=== PATIENT | male | born 1960 | race American Indian/Alaskan Native ===

== ENCOUNTER 2020-07-23 01:59 | Emergency (ER) | payer SELFPAY ==
[2020-07-23] MEDS ORDERED: KETOROLAC 60 MG/2 ML INJ IM ONE (10:20)
[2020-07-23 11:02] LABS: Hematocrit 45.5 % (35.5-45.6); Hemoglobin 15.3 gm/dl (11.8-15.2); Mean Corpuscular HGB Conc 34 % (32-34); Mean Corpuscular Volume 89 fl (84-94); Platelet Count 176 K/mm3 (140-440); Red Blood Count 5.09 M/mm3 (3.65-5.03); Red Cell Distribution Width 13.7 % (13.2-15.2)
[2020-07-23 11:19] LABS: Alanine Aminotransferase 11 units/L (7-56); Albumin 4.6 g/dL (3.9-5); BUN/Creatinine Ratio 13; Blood Urea Nitrogen 12 mg/dL (9-20); Hemolysis Index 8; Uric Acid 5.6 mg/dL (3.5-7.6)
--- NOTE | 2020-07-23 11:29 | XRay Report ---
RIGHT ELBOW 3 VIEW(S) INDICATION / CLINICAL INFORMATION: right elbow pain and swelling COMPARISON: None available. FINDINGS: BONES / JOINT(S): No acute fracture or subluxation. Mild arthrosis. SOFT TISSUES: Soft tissue swelling and edema is noted of the posterior elbow. ADDITIONAL FINDINGS: None. Signer Name: Wild Lynn MD Signed: 07/23/2020 11:24 AM Workstation Name: [id number]
--- NOTE | 2020-07-23 11:54 | Emergency Department Report ---
<SHAI JONES - Last Filed: 07/23/20 20:35> ED Extremity Problem HPI - General Chief complaint: Extremity Injury, Upper Stated complaint: CAN'T MOVE RT ARM Time Seen by Provider: 07/23/20 10:16 Source: patient Mode of arrival: Ambulatory Limitations: No Limitations - History of Present Illness Initial comments: Patient is a 59-year-old male presents emergency room with complaints of right elbow pain and swelling that began yesterday morning. He denies any fall or injury. He denies any abrasions or being bit by anything. He denies ever having this in the past. He denies any numbness or weakness. He states that he has pain with movement. He denies any fever, chills, vomiting, diarrhea. No past medical history. No allergies to medications. He endorses alcohol use, states he is a non-smoker, denies drug use. He denies any history of gout but states that his mother has a history of gout. Severity scale (0 -10): 7 - Related Data Allergies Allergy/AdvReac Type Severity Reaction Status Date / Time No Known Allergies Allergy Unverified 07/23/20 04:32 ED Review of Systems Comment: All other systems reviewed and negative ED Past Medical Hx - Past Medical History Previous Medical History?: No - Surgical History Past Surgical History?: No - Social History Smoking Status: Never Smoker Substance Use Type: None ED Physical Exam - General Limitations: No Limitations General appearance: alert, in no apparent distress - Head Head exam: Present: atraumatic, normocephalic - Eye Eye exam: Present: normal appearance - ENT ENT exam: Present: mucous membranes moist - Respiratory Respiratory exam: Absent: respiratory distress, accessory muscle use - Extremities Exam Extremities exam: Present: other (generalized ttp of the right elbow, there is generalized edema, very mild increased warmth, no erythema, no skin changes, decreased ROM of the elbow secondary to pain and swelling, neurovascularly intact, 2+ distal pulse, compartments are soft) - Neurological Exam Neurological exam: Present: alert, oriented X3 - Psychiatric Psychiatric exam: Present: normal affect, normal mood - Skin Skin exam: Present: warm, dry, intact ED Course - Consultations Consultation #1: 07/23/20 17:38 Spoke with the [place] transfer line, will call back with orthopedic doctor 07/23/20 17:[address] Clancy, [facility], he states they do not have any beds available at [place] therefore will not be able to accept patient 07/23/20 17:58 secretary administrative assistant paged the [facility] transfer line they are on diversion, will try [facility] [place] 07/23/20 18:05 spoke with [facility] [place], will call back 07/23/20 18:[address] Rosario, orthopedic at [facility], will accept and resume care of patient, will accept transfer, advised to admit to hospitalist service at [facility] and will consult on patient 07/23/20 20:[address] Wright, hospitalist at [facility], he states that he would like confirmation from Dr. Rosario that he will consult on patient prior to accepting transfer, the transfer line is going to consult DR. Rosario to speak with Dr. Wright, he then will accept and resume care of patient, pt will be transferred to [facility] via EMS ED Medical Decision Making - Lab Data Result diagrams: 07/23/20 10:39 07/23/20 10:39 Lab Results 07/23/20 07/23/20 07/23/20 Range/Units 10:39 10:39 13:54 WBC 8.4 (4.5-11.0) K/mm3 RBC 5.09 H (3.65-5.03) M/mm3 Hgb 15.3 H (11.8-15.2) gm/dl Hct 45.5 (35.5-45.6) % MCV 89 (84-94) fl MCH 30 (28-32) pg MCHC 34 (32-34) % RDW 13.7 (13.2-15.2) % Plt Count 176 (140-440) K/mm3 Lymph % (Auto) Quality Control Lab Technician Day % (Auto) Quality Control Lab Technician Eos % (Auto) Quality Control Lab Technician Baso % (Auto) Quality Control Lab Technician Lymph # (Auto) Quality Control Lab Technician Day # (Auto) Quality Control Lab Technician Eos # (Auto) Quality Control Lab Technician Baso # (Auto) Quality Control Lab Technician Add Manual Diff Complete Total Counted 100 Seg Neutrophils % Quality Control Lab Technician Seg Neuts % (Manual) 69.0 (40.0-70.0) % Band Neutrophils % 0 % Lymphocytes % (Manual) 18.0 (13.4-35.0) % Reactive Lymphs % (Man) 0 % Monocytes % (Manual) 13.0 H (0.0-7.3) % Eosinophils % (Manual) 0 (0.0-4.3) % Basophils % (Manual) 0 (0.0-1.8) % Metamyelocytes % 0 % Myelocytes % 0 % Promyelocytes % 0 % Blast Cells % 0 % Nucleated RBC % Not Reportable Seg Neutrophils # Quality Control Lab Technician Seg Neutrophils # Man 5.8 (1.8-7.7) K/mm3 Band Neutrophils # 0.0 K/mm3 Lymphocytes # (Manual) 1.5 (1.2-5.4) K/mm3 Abs React Lymphs (Man) 0.0 K/mm3 Monocytes # (Manual) 1.1 H (0.0-0.8) K/mm3 Eosinophils # (Manual) 0.0 (0.0-0.4) K/mm3 Basophils # (Manual) 0.0 (0.0-0.1) K/mm3 Metamyelocytes # 0.0 K/mm3 Myelocytes # 0.0 K/mm3 Promyelocytes # 0.0 K/mm3 Blast Cells # 0.0 K/mm3 WBC Morphology Not Reportable Hypersegmented Neuts Not Reportable Hyposegmented Neuts Not Reportable Hypogranular Neuts Not Reportable Smudge Cells Not Reportable Toxic Granulation Not Reportable Toxic Vacuolation Not Reportable Dohle Bodies Not Reportable Pelger-Huet Anomaly Not Reportable Mark Rods Not Reportable Platelet Estimate Consistent w auto Clumped Platelets Not Reportable Plt Clumps, EDTA Not Reportable Large Platelets Not Reportable Giant Platelets Not Reportable Platelet Satelliting Not Reportable Plt Morphology Comment Not Reportable RBC Morphology Normal Dimorphic RBCs Not Reportable Polychromasia Not Reportable Hypochromasia Not Reportable Poikilocytosis Not Reportable Anisocytosis Not Reportable Microcytosis Not Reportable Macrocytosis Not Reportable Spherocytes Not Reportable Pappenheimer Bodies Not Reportable Sickle Cells Not Reportable Target Cells Not Reportable Tear Drop Cells Not Reportable Ovalocytes Not Reportable Helmet Cells Not Reportable [place] Bodies Not Reportable [place] Rings Not Reportable [place] Cells Not Reportable Bite Cells Not Reportable Crenated Cell Not Reportable Elliptocytes Not Reportable Acanthocytes (Spur) Not Reportable Rouleaux Not Reportable Hemoglobin C Crystals Not Reportable Schistocytes Not Reportable Malaria parasites Not Reportable Helio Bodies Not Reportable Hem Pathologist Commnt No Sodium 133 L (137-145) mmol/L Potassium 4.1 (3.6-5.0) mmol/L Chloride 92.6 L (98-107) mmol/L Carbon Dioxide 28 (22-30) mmol/L Anion Gap 17 mmol/L BUN 12 (9-20) mg/dL Creatinine 0.9 (0.8-1.3) mg/dL Estimated GFR > 60 ml/min BUN/Creatinine Ratio 13 % Glucose 124 H (75-100) mg/dL Uric Acid 5.6 (3.5-7.6) mg/dL Calcium 10.0 (8.4-10.2) mg/dL Total Bilirubin 3.10 H (0.1-1.2) mg/dL AST 14 (5-40) units/L ALT 11 (7-56) units/L Alkaline Phosphatase 42 (35-129) units/L C-Reactive Protein 7.50 H (0.00-1.30) mg/dL Total Protein 9.6 H (6.3-8.2) g/dL Albumin 4.6 (3.9-5) g/dL Albumin/Globulin Ratio 0.9 % Fluid Type Synovial Fluid Color Yellow Fluid Appearance Turbid Fluid WBC 01603 /mm3 Fluid RBC 1300 /mm3 Fluid Seg Neutrophils 81.0 % Fluid Lymphocytes 7.0 % Fluid Reactive Lymphs 0 % Fluid Monocytes 12.0 % Fluid Eosinophils 0 % Fluid Basophils 0 % Synovial Crystals Negative (NONE SEEN) Vital Signs 07/23/20 07/23/20 07/23/20 11:06 16:20 18:11 Temperature 97.8 F Pulse Rate 78 84 Respiratory 18 18 18 Rate Blood Pressure 180/109 160/80 [Right] O2 Sat by Pulse 99 99 Oximetry 07/23/20 18:12 Temperature Pulse Rate Respiratory 18 Rate Blood Pressure 175/95 [Right] O2 Sat by Pulse 100 Oximetry - Radiology Data Radiology results: report reviewed Ordering Physician: ANI YOST Date of Service: 07/23/20 Procedure(s): XR elbow 2V RT Accession Number(s): [id number] cc: ANI YOST Fluoro Time In Minutes: RIGHT ELBOW 3 VIEW(S) INDICATION / CLINICAL INFORMATION: right elbow pain and swelling COMPARISON: None available. FINDINGS: BONES / JOINT(S): No acute fracture or subluxation. Mild arthrosis. SOFT TISSUES: Soft tissue swelling and edema is noted of the posterior elbow. ADDITIONAL FINDINGS: None. Signer Name: Wild Capone MD Signed: 07/23/2020 11:24 AM Workstation Name: [id number] Transcribed By: Dictated By: WILD CAPONE Electronically Authenticated By: WILD CAPONE Signed Date/Time: 07/23/201123 DD/ 22 TD/TT: - Medical Decision Making Patient is a 59-year-old male presents emergency room with complaints of right elbow pain and swelling that began yesterday morning. He denies any fall or injury. He denies any abrasions or being bit by anything. He denies ever having this in the past. He denies any numbness or weakness. He states that he has pain with movement. He denies any fever, chills, vomiting, diarrhea. No past medical history. No allergies to medications. He endorses alcohol use, states he is a non-smoker, denies drug use. He denies any history of gout but states that his mother has a history of gout. initial vitals with elevated BP which improved upon repeat. on exam: generalized ttp of the right elbow, there is generalized edema, very mild increased warmth, no erythema, no skin changes, decreased ROM of the elbow secondary to pain and swelling, neurovascularly intact, 2+ distal pulse, compartments are soft. labs with elevated CRP. XR right elbow: BONES / JOINT(S): No acute fracture or subluxation. Mild arthrosis. SOFT TISSUES: Soft tissue swelling and edema is noted of the posterior elbow. AD DITIONAL FINDINGS: None. Examination concerning for septic joint. Discussed case with Dr. Estrada, ER attending who performed arthrocentesis. The cell count shows a high white blood cell count and a high neutrophils, Gram stain with no organisms. Fluid count is concerning for septic joint. We do not have orthopedic equipment installation professional at this facility. Patient will be have to be transferred. spoke to Dr. Rosario, orthopedic at [facility], will accept and resume care of patient, will accept transfer, advised to admit to hospitalist service at [facility] and will consult on patient. Patient signed out to Dr. Hill, ER attending pending acceptance by hospitalist at transfer facility [facility] Critical Care Time: Yes Critical care time in (mins) excluding proc time.: 60 Critical Care Time: Critical care time includes multiple reexaminations, interpretation of diagnostic and laboratory studies, multiple consultations ED Disposition Clinical Impression: Septic joint Qualifiers: Septic arthritis location: elbow Septic arthritis organism: due to unspecified organism Laterality: right Qualified Code(s): M00.9 - Pyogenic arthritis, unspecified Septic arthritis of elbow, right Qualifiers: Septic arthritis organism: due to unspecified organism Qualified Code(s): M00.9 - Pyogenic arthritis, unspecified Disposition: DC/TX-70 ANOTHER TYPE HLTHCARE Is pt being admited?: No Does the pt Need Aspirin: No Condition: Serious <CARLOS UNDERWOOD - Last Filed: 07/23/20 21:27> ED Medical Decision Making - Lab Data Result diagrams: 07/23/20 10:39 07/23/20 10:39 - Medical Decision Making Final acceptance of the patient was at 9:25 PM after speaking to the nurse legal services manager and transfer line. Patient was excepted by Dr. Berrios <MONICA ESTRADA - Last Filed: 07/24/20 06:16> ED Review of Systems ROS: Stated complaint: CAN'T MOVE RT ARM Other details as noted in HPI ED Course Vital Signs 07/23/20 07/23/20 07/23/20 04:22 11:04 11:06 Temperature 98.0 F 97.8 F 97.8 F Pulse Rate 83 78 78 Respiratory 18 18 18 Rate Blood Pressure 163/102 181/109 Blood Pressure 180/109 [Right] O2 Sat by Pulse 100 90 99 Oximetry 07/23/20 07/23/20 07/23/20 16:20 18:11 18:12 Temperature Pulse Rate 84 Respiratory 18 18 18 Rate Blood Pressure Blood Pressure 160/80 175/95 [Right] O2 Sat by Pulse 99 100 Oximetry 07/24/20 01:51 Temperature 98.5 F Pulse Rate 84 Respiratory 17 Rate Blood Pressure Blood Pressure 136/78 [Right] O2 Sat by Pulse 98 Oximetry - Joint Aspiration/Injection Consent Obtained: written consent Time Out Performed: Yes Indications: R/O septic arthritis Side of Body: right Joint Aspirated: elbow Skin Prep: Povidone-Iodine1% Local Anesthesia Used: Lidocaine 1% Amount of Anesthesia Used (mls): 2 Needle Size Used: 20G Syringe Size Used: 10cc Fluid Obtained: turbid Total Fluid Obtained (mls): 16 Patient Tolerated Procedure: well ED Medical Decision Making - Lab Data Result diagrams: 07/23/20 10:39 07/23/20 10:39 - Medical Decision Making I saw this patient in conjunction with ANI Jones. The patient has had a 2- day history of right elbow swelling and pain and had a restriction to range of motion to where he could not fully extend his elbow. The area is swollen to the medial, lateral and posterior region of the elbow, but not the antecubital fossa. There is warmth but no erythema. The patient is neurovascularly intact. Vital signs reassuring including being afebrile. However, given the severe and acute onset of pain, warmth and swelling, and elevated CRP, there was concern for septic arthritis. As per the procedure section, I did a diagnostic elbow arthrocentesis and got out about 16 mL of turbid synovial fluid. The labs had started to come back prior to my shift ending and it showed greater than 80% neutrophils. I cannot see that the cell count showed a WBC count of almost 70,000 confirming septic arthritis. The patient was given IV antibiotics and transferred to [facility] for orthopedic consultation. Critical care attestation.: If time is entered above; I have spent that time in minutes in the direct care of this critically ill patient, excluding procedure time. ED Disposition Is pt being admited?: No
[2020-07-23 12:03] LABS: Basophils % (Manual) 0 % (0.0-1.8); Eosinophils % (Manual) 0 % (0.0-4.3); Platelet Estimate Consistent w Auto; RBC Morphology Normal; Total Cells Counted 100
[2020-07-23] MEDS ORDERED: LIDOCAINE-MPF (1%) 10 MG/1 ML VIAL 5 ML INFILTRATI ONE (12:31)
[2020-07-23 15:51] LABS: Total Cells Counted 100 /mm3
[2020-07-23] MEDS ORDERED: CEFEPIME/NS 1 GM/100 ML 1 GM/100 ML BAG IV ONE (17:38)
[2020-07-23] MEDS ORDERED: VANCOMYCIN PHARMACY TO DOSE IV SCH (18:00)
[2020-07-23] MEDS ORDERED: VANCOMYCIN 1,250 MG in SODIUM CHLORIDE 0.9% 250ML 250 ML IV ONE (18:30)
[2020-07-24 01:52] VITALS: BP 136/78
== END 2020-07-24 04:35 | disposition other institution (70) ==
LOC: ED 01:59
DX: M00.9 Pyogenic arthritis, unspecified (principal)
CPT/HCPCS: 20605; 36415; 73070; 80053; 84550; 85007; 85025; 85048; 86140; 87205; 89051; 96365; 96367; 96372; 99285; J0692; J1885; J3370; J7050